=== PATIENT | female | born 1940 | race Caucasian/White ===

== ENCOUNTER 2023-03-15 17:45 | Emergency (ER) | payer OTHER ==
[~2023-03-15] VITALS: Ht 167.6 cm; Wt 90.7 kg
[2023-03-15 19:51] LABS: BASOPHILS ABSOLUTE AUTO 0.09 K/mm3 (0.00-0.23); BASOPHILS PERCENT AUTO 1 % (0-2); EOSINOPHILS ABSOLUTE AUTO 0.51 K/mm3 (0.00-0.68); EOSINOPHILS PERCENT AUTO 4 % (0-6); Hematocrit 38.9 % (33.0-51.0); Hemoglobin 12.7 g/dL (11.5-16.0); IMMATURE GRAN ABSOLUTE AUTO 0.07 K/mm3 (0.00-0.10); IMMATURE GRAN PERCENT AUTO 1 % (0-1); LYMPHOCYTES ABSOLUTE AUTO 1.98 K/mm3 (0.84-5.20); LYMPHOCYTES PERCENT AUTO 15 % (21-46); MONOCYTES ABSOLUTE AUTO 1.15 K/mm3 (0.16-1.47); MONOCYTES PERCENT AUTO 9 % (4-13); Mean Corpuscular HGB 27.8 pg (26.0-34.0); Mean Corpuscular HGB Conc 32.6 g/dL (31.5-36.5); Mean Corpuscular Volume 85 fL (80-100); Mean Platelet Volume 11.3 fL (9.1-12.4); NEUTROPHILS ABSOLUTE AUTO 9.29 K/mm3 (1.96-9.15); NEUTROPHILS PERCENT AUTO 71 % (41-73); Platelet Count 363 K/mm3 (150-400); RDW Coefficient Variation 14.6 % (11.7-14.2); RDW Standard Deviation 44.6 fL (35.1-46.3); Red Blood Cell Count 4.57 M/mm3 (3.80-5.20); White Blood Cell Count 13.09 K/mm3 (4.00-11.30)
[2023-03-15 20:08] LABS: Albumin, Blood 2.6 g/dL (3.4-5.0); Albumin/Globulin Ratio 0.5 (0.8-1.8); Bilirubin, Total 0.5 mg/dL (0.1-1.0); Bun/Creatinine Ratio 20.9 (12.0-20.0); Calcium, Blood 9.6 mg/dL (8.5-10.1); Creatinine, Blood 1.1 mg/dL (0.40-1.00); Globulin, Blood 5.2 g/dL (2.2-4.0); Potassium, Blood 3.5 mmol/L (3.5-5.5); Total Protein, Blood 7.8 g/dL (6.4-8.2)
[2023-03-15] MEDS ORDERED: CEPH500 PO (20:55)
[2023-03-15 21:50] VITALS: BP 154/90
== END 2023-03-15 21:55 | disposition home or self-care (01) ==
LOC: ER 17:45
PROVIDERS: Emergency Medicine
DX: L03.114 Cellulitis of left upper limb (principal); M25.552 Pain in left hip; M19.90 Unspecified osteoarthritis, unspecified site; Z88.8 Allergy status to other drugs, medicaments and biological substances; Z88.2 Allergy status to sulfonamides; Z91.013 Allergy to seafood
CPT/HCPCS: 73110; 73502; 80053; 85025; A9270; J2405

== ENCOUNTER → 2024-01-10 | Outpatient (CLI) | payer MEDICARE, OTHER ==
[~2024-01-10] MED LIST: CEPH500 PO
== END ==
LOC: LAB SHORT 14:57 → LAB 14:57
DX: L08.0 Pyoderma (principal)
CPT/HCPCS: 87070; 87077; 87147; 87186; 87205

== ENCOUNTER 2025-01-16 13:45 | Inpatient (IN) | payer OTHER, MEDICARE ==
[~2025-01-16] VITALS: Ht 170.2 cm; Wt 104.3 kg
[2025-01-16 14:20] LABS: BASOPHILS ABSOLUTE AUTO 0.15 K/mm3 (0.00-0.23); BASOPHILS PERCENT AUTO 1 % (0-2); EOSINOPHILS ABSOLUTE AUTO 0.72 K/mm3 (0.00-0.68); EOSINOPHILS PERCENT AUTO 5 % (0-6); Hematocrit 45.7 % (33.0-51.0); Hemoglobin 14.9 g/dL (11.5-16.0); IMMATURE GRAN ABSOLUTE AUTO 0.09 K/mm3 (0.00-0.10); IMMATURE GRAN PERCENT AUTO 1 % (0-1); LYMPHOCYTES ABSOLUTE AUTO 2.17 K/mm3 (0.84-5.20); LYMPHOCYTES PERCENT AUTO 15 % (21-46); MONOCYTES ABSOLUTE AUTO 1.32 K/mm3 (0.16-1.47); MONOCYTES PERCENT AUTO 9 % (4-13); Mean Corpuscular HGB Conc 32.6 g/dL (31.5-36.5); Mean Corpuscular Volume 81 fL (80-100); NEUTROPHILS ABSOLUTE AUTO 9.75 K/mm3 (1.96-9.15); NEUTROPHILS PERCENT AUTO 69 % (41-73); NRBC ABSOLUTE 0.00 K/mm3 (0.00-0.02); NRBC Auto 0.0 /100 WBC (0.0-0.2); Platelet Count 419 K/mm3 (150-400); RDW Coefficient Variation 17.5 % (11.7-14.2); RDW Standard Deviation 50.8 fL (35.1-46.3)
[2025-01-16 14:50] LABS: Alanine Aminotransfer (ALT/SGP 18.0 U/L (12-78); Albumin, Blood 2.6 g/dL (3.4-5.0); Albumin/Globulin Ratio 0.5 (0.8-1.8); Anion Gap 10.0 mmol/L (3-11); Aspartate Aminotrans (AST/SGOT 16.0 U/L (12-37); Bilirubin, Total 0.4 mg/dL (0.1-1.0); Blood Urea Nitrogen 33.0 mg/dL (8-24); CO2, Blood 28.0 mmol/L (21-32); Calcium, Blood 9.0 mg/dL (8.5-10.1); Chloride, Blood 99.0 mmol/L (98-108); Creatinine, Blood 1.05 mg/dL (0.40-1.00); Globulin, Blood 5.3 g/dL (2.2-4.0); Glucose, Blood 371.0 mg/dL (70-99); Potassium, Blood 4.1 mmol/L (3.5-5.5); Sodium, Blood 133.0 mmol/L (136-145); Total Protein, Blood 7.9 g/dL (6.4-8.2)
[2025-01-16] MEDS ORDERED: FLU VACC TS2025(65UP)/MF59C/PF 45 MCG/0.5 ML SYRINGE IM SCH (15:25)
[2025-01-16] MEDS ORDERED: ASPI81CH PO (15:29)
[2025-01-16] MEDS ORDERED: ACET325 PO (15:29)
[2025-01-16] MEDS ORDERED: BENADRYL25 MG PO (15:30)
[2025-01-16] MEDS ORDERED: DOCU100 PO (15:31)
[2025-01-16] MEDS ORDERED: BISA10S PR (15:31)
[2025-01-16] MEDS ORDERED: Cymbalta20 MG PO (15:31)
[2025-01-16] MEDS ORDERED: FURO40 PO (15:32)
[2025-01-16] MEDS ORDERED: JARDIANCE25 MG PO (15:32)
[2025-01-16] MEDS ORDERED: Fleet Enema132 ML PR (15:32)
[2025-01-16] MEDS ORDERED: INSULANI SC (15:34)
[2025-01-16] MEDS ORDERED: MIRALAX17 GM PO (15:34)
[2025-01-16] MEDS ORDERED: METO25ER PO (15:34)
[2025-01-16] MEDS ORDERED: PRAV20 PO (15:35)
[2025-01-16] MEDS ORDERED: ADALAT CC90 M1 PO (15:35)
[2025-01-16] MEDS ORDERED: POTA10T PO (15:35)
[2025-01-16] MEDS ORDERED: SENN187 PO (15:36)
[2025-01-16] MEDS ORDERED: Calcium Carbon500 MG PO (15:37)
[2025-01-16] MEDS ORDERED: Voltaren100 GM TOP (15:38)
--- NOTE | 2025-01-16 17:40 | NUR ---
PT TO ROOM 356 FROM ER.
[2025-01-16 18:05] VITALS: BP 143/103
--- NOTE | 2025-01-16 18:30 | NUR ---
PT'S BLOOD SUGAR 352. DR GARCIA NOTIFIED AND VERBAL ORDER FOR INSULIN RECIEVED AND ENTERED PER JUN.
[2025-01-16 19:21] VITALS: BP 135/98
[2025-01-16] MEDS ORDERED: Insulin Glargine 100 Unit/ML 3 ML SYR SC SCH (21:00)
[2025-01-16] MEDS ORDERED: Insulin Human Lispro 100 Units/ML 3ML Syringe SC SCH (21:00)
[2025-01-16 23:52] VITALS: BP 155/103
[2025-01-17] VITALS (7 sets, daily range): BP systolic 112–152; BP diastolic 77–103
--- NOTE | 2025-01-17 05:39 | NUR ---
SHIFT SUMMARY PT A&Ox2-3. NO C/O PAIN. PT WITH LEFT SIDE FACIAL DROOP AND WEAKNESS. Q4 NEURO CHECKS WITH NO CHANGE IN DEFFICTS NOTED. PURWICK IN PLACE. BARRIER CREAM APPLIED TO RED AREA ON BOTTOM AND GROIN. PT REPOSITIONED DURING THE NIGHT. ATTEMPTED BEDSIDE SWALLOW EVAL, OFFERED PT SEVERAL SPOON FULLS OF WATER. PT BEGAN TO COUGH WITH THE 4TH SIP OF WATER. PT HAS BEEN NPO DURING THE NIGHT. BED ALARM ON. BED IN LOWEST POSITION AND CALL LIGHT IN REACH.
[2025-01-17] MEDS ORDERED: Enoxaparin 40 MG/0.4 ML SYR SC SCH (09:00)
[2025-01-17] MEDS ORDERED: Miconazole Nitrate 2% 85 GM PWD TOP SCH ×2 (10:30→21:00)
[2025-01-17 13:15] LABS: BASOPHILS ABSOLUTE AUTO 0.12 K/mm3 (0.00-0.23); BASOPHILS PERCENT AUTO 1 % (0-2); EOSINOPHILS ABSOLUTE AUTO 0.46 K/mm3 (0.00-0.68); EOSINOPHILS PERCENT AUTO 3 % (0-6); Hematocrit 49.3 % (33.0-51.0); Hemoglobin 15.8 g/dL (11.5-16.0); IMMATURE GRAN ABSOLUTE AUTO 0.10 K/mm3 (0.00-0.10); IMMATURE GRAN PERCENT AUTO 1 % (0-1); LYMPHOCYTES ABSOLUTE AUTO 2.31 K/mm3 (0.84-5.20); LYMPHOCYTES PERCENT AUTO 14 % (21-46); MONOCYTES ABSOLUTE AUTO 1.19 K/mm3 (0.16-1.47); MONOCYTES PERCENT AUTO 7 % (4-13); Mean Corpuscular HGB Conc 32.0 g/dL (31.5-36.5); Mean Corpuscular Volume 82 fL (80-100); NEUTROPHILS ABSOLUTE AUTO 11.83 K/mm3 (1.96-9.15); NEUTROPHILS PERCENT AUTO 74 % (41-73); NRBC ABSOLUTE 0.00 K/mm3 (0.00-0.02); NRBC Auto 0.0 /100 WBC (0.0-0.2); Platelet Count 437 K/mm3 (150-400); RDW Coefficient Variation 18.5 % (11.7-14.2); RDW Standard Deviation 51.9 fL (35.1-46.3)
[2025-01-17 13:47] LABS: Anion Gap 10 mmol/L (3-11); Blood Urea Nitrogen 30 mg/dL (8-24); CHOL/HDL RATIO 2.9; CO2, Blood 27 mmol/L (21-32); Calcium, Blood 9.5 mg/dL (8.5-10.1); Chloride, Blood 104 mmol/L (98-108); Cholesterol 149 mg/dL (50-200); Creatinine, Blood 1.04 mg/dL (0.40-1.00); Glucose, Blood 127 mg/dL (70-99); HDL Cholesterol 51 mg/dL (>39); LDL/HDL RATIO 1.5; Low Density Lipoprotein Chol 79 mg/dL (0-110); Potassium, Blood 3.7 mmol/L (3.5-5.5); Sodium, Blood 137 mmol/L (136-145); Triglycerides 97 mg/dL (30-160); Very Low Density Lipoprot Chol 19 mg/dL (6-32)
--- NOTE | 2025-01-17 19:17 | NUR ---
SHIFT SUMMARY PT IS A/OX3-4, FORGETFUL AND CONFUSION AT TIMES. LEFT SIDED WEAKNESS ASSESSED, HOWEVER WITH IMPROVEMENT WHEN COMPARED TO YESTERDAY. REPEAT CT AND MRI COMPLETED THIS SHIFT. AWAITING MRI RESULTS. EVALUATED BY ST/PT/OT. PT IS TOLERATING NECTAR THICK LIQUIDS AND MEDS WHOLE IN APPLESAUCE WITH NO COUGHING OR SIGNS OF ASPIRATION NOTED. VERY POOR APPETITE, ENCOURAGING INTAKE. PURWICK IN PLACE DRAINING CLEAR, YELLOW URINE. Q2 TURNS. PT IS PLEASANT AND COOPERATIVE WITH CARE.
[2025-01-17] MEDS ORDERED: Insulin Glargine 100 Unit/ML 3 ML SYR SC SCH (21:00)
[2025-01-18 03:07] VITALS: BP 124/92
--- NOTE | 2025-01-18 03:40 | NUR ---
SHIFT SUMMARY: PT IS AOX1 AT THE BEGINNING OF THE SHIFT, SHE WAS VERY LETHARGIC AND UNABLE TO TAKE HER BEDTIME MEDS. THIS MORNING SHE IS AOX4. MUMBLED SPEECH. L SIDED WEAKNESS MORE THAN RIGHT BUT SHE IS VERY WEAK GENERALLY. MEPILEX PLACED TO HER BOTTOM FOR PREVENTION. GROIN AND BOTTOM IS VERY EXCOPRIATED. Q2 TURNS. TELEMETRY MONITORING IN PLACE, AFIB 100s. CALL LIGHT IS WITHIN REACH. BED IS LOW AND LOCKED.
[2025-01-18 05:24] LABS: Hematocrit 47.2 % (33.0-51.0); Hemoglobin 15.1 g/dL (11.5-16.0); Mean Corpuscular HGB Conc 32.0 g/dL (31.5-36.5); Mean Corpuscular Volume 82 fL (80-100); NRBC ABSOLUTE 0.00 K/mm3 (0.00-0.02); NRBC Auto 0.0 /100 WBC (0.0-0.2); Platelet Count 393 K/mm3 (150-400); RDW Coefficient Variation 18.5 % (11.7-14.2); RDW Standard Deviation 53.1 fL (35.1-46.3)
[2025-01-18 05:50] LABS: Anion Gap 8.0 mmol/L (3-11); Blood Urea Nitrogen 28.0 mg/dL (8-24); CO2, Blood 28.0 mmol/L (21-32); Calcium, Blood 9.7 mg/dL (8.5-10.1); Chloride, Blood 106.0 mmol/L (98-108); Creatinine, Blood 1.13 mg/dL (0.40-1.00); Glucose, Blood 103.0 mg/dL (70-99); Potassium, Blood 3.6 mmol/L (3.5-5.5); Sodium, Blood 138.0 mmol/L (136-145)
[2025-01-18 07:31] VITALS: BP 142/97
[2025-01-18] MEDS ORDERED: Polyethylene Glycol 3350 17 gm PO SCH (09:00)
[2025-01-18] MEDS ORDERED: DULoxetine HCL 20 MG Cap DR PO SCH (09:00)
[2025-01-18] MEDS ORDERED: Potassium Chloride 10 Meq Tablet SA PO SCH (09:00)
[2025-01-18] MEDS ORDERED: KOURZEQ5 GM DT (11:24)
[2025-01-18 11:34] VITALS: BP 150/99
[2025-01-18 15:51] VITALS: BP 135/89
--- NOTE | 2025-01-18 16:13 | NUR ---
SHIFT SUMMARY PATIENT IN BED THIS SHIFT. WORKING WITH ST THIS AM, NO CHANGES TO CURRENT PLAN, ABLE TO FEED HERSELF WITH SET UP ASSISTANCE. HOME CREAM FOR BUTTOCK ORDERED PER DR GARCIA. FREQUENT REPOSITIONING FOR COMFORT AND PRESSURE RELIEF. L SIDED DEFICITS PERSIST, NO CHANGES THROUGHOUT SHIFT. ELIQUIS GIVEN, TOLERATING WELL SO FAR. PLAN TO DISCHARGE BACK TO [facility] PER DOC. ABLE TO MAKE NEEDS KNOWN. CALL LIGHT IN REACH.
[2025-01-18 19:29] VITALS: BP 102/76
[2025-01-18 23:08] VITALS: BP 132/92
--- NOTE | 2025-01-19 03:36 | NUR ---
SHIFT SUMMARY: AOX3. SPEECH IS MUMBLED BUT COHERENT. PT HAS SEVERE L SIDED WEAKNESS, BUT IS ALSO VERY WEAK TO R SIDE WELL. CURRENTLY ON BEDREST, PT IS WC BOUND OTHERWISE. Q2 TURNING DONE TO PREVENT PRESSURE INJURIES WELL TO ALLEVIATE SACRAL PAIN. CALL LIGHT IS WITHIN REACH. BED IS LOW AND LOCKED.
[2025-01-19 03:37] VITALS: BP 133/95
[2025-01-19 07:16] VITALS: BP 107/83
[2025-01-19] MEDS ORDERED: ELIQUIS5 M2 PO (10:23)
[2025-01-19] MEDS ORDERED: MICONAZOLE NITR85 GM TOP (10:24)
[2025-01-19] MEDS ORDERED: LOSA25 PO (10:24)
[2025-01-19 12:26] VITALS: BP 106/73
--- NOTE | 2025-01-19 15:59 | NUR ---
DISCHARGE SUMMARY PATIENT SET TO DISCHARGE W/C WITH TRANSPORT. REPORT CALLED TO TELLY AT [facility]. SKIN TO BUTTOCK AND [place] AREA AND PUBIC AREA RED AND EXCORIATED ON DISCHARGE, APPEARS UNCHANGED FROM ADMISSION PICTURES. BM THIS SHIFT.
--- NOTE | 2025-01-19 16:24 | NUR ---
PATIENT LEFT WITH TRANSPORT VIA STRETCHER.
== END 2025-01-19 16:19 | DRG 65 ==
LOC: ER 13:45 → MEDS 13:46
PROVIDERS: Emergency Medicine; ADMIT Internal Medicine
DX: I63.49 Cerebral infarction due to embolism of other cerebral artery (principal); E87.1 Hypo-osmolality and hyponatremia; G81.92 Hemiplegia, unspecified affecting left dominant side; I48.20 Chronic atrial fibrillation, unspecified; I50.32 Chronic diastolic (congestive) heart failure; I13.0 Hypertensive heart and chronic kidney disease with heart failure and stage 1 through stage 4 chronic kidney disease, or unspecified chronic kidney disease; I25.10 Atherosclerotic heart disease of native coronary artery without angina pectoris; F32.A Depression, unspecified; I27.20 Pulmonary hypertension, unspecified; E78.5 Hyperlipidemia, unspecified; E11.40 Type 2 diabetes mellitus with diabetic neuropathy, unspecified; E66.9 Obesity, unspecified; R29.810 Facial weakness; R47.81 Slurred speech; N18.30 Chronic kidney disease, stage 3 unspecified; E11.22 Type 2 diabetes mellitus with diabetic chronic kidney disease; D63.1 Anemia in chronic kidney disease; D72.829 Elevated white blood cell count, unspecified; R91.1 Solitary pulmonary nodule; Z98.890 Other specified postprocedural states; Z88.5 Allergy status to narcotic agent; Z88.8 Allergy status to other drugs, medicaments and biological substances; Z91.013 Allergy to seafood; Z79.2 Long term (current) use of antibiotics; Z79.899 Other long term (current) drug therapy; Z88.2 Allergy status to sulfonamides; Z79.82 Long term (current) use of aspirin; Z79.4 Long term (current) use of insulin; Z68.36 Body mass index [BMI] 36.0-36.9, adult
CPT/HCPCS: 36415; 70450; 70496; 70498; 70551; 71045; 80048; 80053; 80061; 82947; 83036; 85025; 85027; 85730; 92526; 92610; 93005; 93010; 93306; 96372; 97110; 97162; 97167; 97530; 99285-25; A9270; G0378; J1650; J1815; Q9967